=== PATIENT | female | born 1970 | race American Indian/Alaskan Native ===

== ENCOUNTER 2017-04-01 17:35 | Emergency (ER) | payer OTHER ==
[2017-04-01] MEDS ORDERED: ATIVAN ONE ×2 (18:07→18:28)
[2017-04-01] MEDS ORDERED: CATAPRES ONE (18:07)
[2017-04-01] MEDS ORDERED: CATAPRES PO ONE (18:12)
[2017-04-01] MEDS ORDERED: ATIVAN IV ONE (18:12)
[2017-04-01] MEDS ORDERED: ATIVAN PO ONE (18:32)
[2017-04-01 18:45] LABS: Basophils % (Auto) 0.3 % (0.0-1.8); Hematocrit 40.1 % (30.3-42.9); Hemoglobin 13.3 gm/dl (10.1-14.3); Mean Corpuscular HGB Conc 33 % (30-34); Mean Corpuscular Hemoglobin 32 pg (28-32); Mean Corpuscular Volume 97 fl (79-97); Platelet Count 319 K/mm3 (140-440); Red Blood Count 4.14 M/mm3 (3.65-5.03); Red Cell Distribution Width 14.1 % (13.2-15.2)
[2017-04-01 19:58] LABS: Alanine Aminotransferase 19 units/L (7-56); Albumin 4.3 g/dL (3.9-5); Albumin/Globulin Ratio 1.2 %; Alkaline Phosphatase 74 units/L (35-129); Anion Gap 20 mmol/L; Blood Urea Nitrogen 12 mg/dL (7-17); Calcium 9.5 mg/dL (8.4-10.2); Carbon Dioxide 22 mmol/L (22-30); Glucose 175 mg/dL (65-100); Potassium 3.6 mmol/L (3.6-5.0); Sodium 137 mmol/L (137-145)
--- NOTE | 2017-04-01 22:15 | Emergency Department Report ---
ED General Adult HPI - General Chief complaint: High BP Stated complaint: HTN Time Seen by Provider: 04/01/17 22:00 Source: patient, EMS (ems notes not available at time of chart dictation), RN notes reviewed, old records reviewed Mode of arrival: Ambulatory Limitations: No Limitations - History of Present Illness Initial comments: This is a 46-year-old female. She is previously unknown to me. Primary care Dr.: Past medical history: Hypertension, lupus, possible H. pylori. Medications for hypertension include clonidine, 0.1 mg every 6 hours, losartan 100 mg every morning, metoprolol 25 mg daily. Norvasc 10 mg orally. The patient is sent to the ER from a local psychiatric facility for "increased blood pressure and psychosis (new onset) rule out delirium tremens." As per enclosed medical documentation, the patient recently had an overnight stay at a local hospital for possible baclofen ingestion, and was deemed to be medically stable for psychiatric placement. As per includes psychiatric documentation, the patient was sent to the ER for increased blood pressure and new onset psychosis. She is sent to exclude delirium tremens. To me, the patient denies headache, neck pain, chest pain, abdominal pain, back pain, homicidality, suicidality, hallucinations, shortness of breath. Her primary complaint is left plantar foot pain. The patient reports compliance with her medications. -: unknown Radiation: other (per hpi) Quality: other (as per hpi) Consistency: other (as per hpi) Associated Symptoms: denies: confusion, chest pain, cough, diaphoresis, headaches, loss of appetite, malaise, nausea/vomiting, shortness of breath, syncope, weakness - Related Data Home Medications Medication Instructions Recorded Confirmed Last Taken Albuterol Sulfate [Ventolin HFA] 2 puff IH Q4H PRN 07/03/13 07/03/13 Unknown Atenolol [Tenormin] 50 mg PO DAILY 07/03/13 07/03/13 Unknown Carisoprodol [Soma] 350 mg PO 07/03/13 07/03/13 Unknown Lisinopril [Zestril] 40 PO QDAY 07/03/13 07/03/13 Unknown Losartan [Cozaar] 100 mg PO QDAY 07/03/13 07/03/13 Unknown Promethazine Dm [Phenergan DM 5 PO BID 07/03/13 07/03/13 Unknown 6.25-15 mg/5 ml] amLODIPine [Norvasc] 10 mg PO DAILY 07/03/13 07/03/13 Unknown cloNIDine [Catapres] 0.1 mg TRANSDERMA QWEEK 07/03/13 07/03/13 Unknown traMADol [Ultram 50 MG tab] 50 PO PRN 07/03/13 07/03/13 Unknown Allergies Allergy/AdvReac Type Severity Reaction Status Date / Time hydrochlorothiazide Allergy Unknown Verified 04/01/17 18:03 ED Review of Systems ROS: Stated complaint: HTN Other details as noted in HPI Constitutional: denies: fever Eyes: denies: vision change ENT: denies: epistaxis Respiratory: denies: cough Cardiovascular: denies: chest pain Gastrointestinal: denies: abdominal pain Genitourinary: as per HPI Musculoskeletal: as per HPI Skin: as per HPI Neurological: as per HPI Psychiatric: as per HPI ED Past Medical Hx - Past Medical History Previous Medical History?: Yes Hx Hypertension: Yes Hx Congestive Heart Failure: Yes Hx Asthma: Yes Additional medical history: lupus. colitis. interstitial cystitis. TEENA - Surgical History Past Surgical History?: Yes Hx Cholecystectomy: Yes - Social History Smoking Status: Never Smoker Substance Use Type: Prescribed - Medications Home Medications: Home Medications Medication Instructions Recorded Confirmed Last Taken Type Albuterol Sulfate [Ventolin HFA] 2 puff IH Q4H PRN 07/03/13 07/03/13 Unknown History Atenolol [Tenormin] 50 mg PO DAILY 07/03/13 07/03/13 Unknown History Carisoprodol [Soma] 350 mg PO 07/03/13 07/03/13 Unknown History Lisinopril [Zestril] 40 PO QDAY 07/03/13 07/03/13 Unknown History Losartan [Cozaar] 100 mg PO QDAY 07/03/13 07/03/13 Unknown History Promethazine Dm [Phenergan DM 5 PO BID 07/03/13 07/03/13 Unknown History 6.25-15 mg/5 ml] amLODIPine [Norvasc] 10 mg PO DAILY 07/03/13 07/03/13 Unknown History cloNIDine [Catapres] 0.1 mg TRANSDERMA QWEEK 07/03/13 07/03/13 Unknown History traMADol [Ultram 50 MG tab] 50 PO PRN 07/03/13 07/03/13 Unknown History ED Physical Exam - General Limitations: No Limitations General appearance: alert, in no apparent distress - Head Head exam: Present: atraumatic, normocephalic - Eye Eye exam: Present: normal appearance, EOMI, other (visual acuity intact to finger counting, color perception, reading at a close distance). Absent: nystagmus - ENT ENT exam: Present: normal exam, normal orophraynx, mucous membranes moist, normal external ear exam - Neck Neck exam: Present: normal inspection, full ROM. Absent: tenderness, meningismus - Respiratory Respiratory exam: Present: normal lung sounds bilaterally. Absent: respiratory distress, wheezes, rales, rhonchi, stridor, chest wall tenderness, accessory muscle use, decreased breath sounds, prolonged expiratory - Cardiovascular Cardiovascular Exam: Present: regular rate, normal rhythm, normal heart sounds. Absent: bradycardia, tachycardia, irregular rhythm, systolic murmur, diastolic murmur, rubs, gallop - GI/Abdominal GI/Abdominal exam: Present: soft, normal bowel sounds. Absent: distended, tenderness, guarding, rebound, rigid, pulsatile mass - Extremities Exam Extremities exam: Present: normal inspection, full ROM, normal capillary refill , other (the compartments are soft. 2+ pulses are noted in 4 extremities. There is minimal left plantar tenderness, with no redness, pus or streaking.). Absent: tenderness, pedal edema, joint swelling, calf tenderness - Back Exam Back exam: Present: normal inspection, full ROM. Absent: tenderness, CVA tenderness (R), CVA tenderness (L), muscle spasm, paraspinal tenderness, vertebral tenderness - Neurological Exam Neurological exam: Present: alert, oriented X3, normal gait, other (Extraocular movements intact. Tongue midline. No facial droop. Facial sensation intact to light touch in the V1, V2, V3 distribution bilaterally. 5 and 5 strength in 4 extremities.. Sensation is intact to light touch in 4 extremities.). Absent : motor sensory deficit - Psychiatric Psychiatric exam: Present: normal affect, normal mood. Absent: homicidal ideation, suicidal ideation - Skin Skin exam: Present: warm, dry, intact, normal color. Absent: rash ED Course Vital Signs 04/01/17 04/01/17 04/01/17 17:56 18:25 20:01 Temperature 98.6 F Pulse Rate 86 86 105 H Respiratory 20 Rate Blood Pressure 190/119 190/119 Blood Pressure [Right] O2 Sat by Pulse 100 Oximetry 04/01/17 04/01/17 04/01/17 23:03 23:06 23:10 Temperature Pulse Rate 92 H 97 H Respiratory 32 H 30 H Rate Blood Pressure 214/107 214/107 Blood Pressure [Right] O2 Sat by Pulse 100 98 99 Oximetry 04/01/17 04/01/17 04/01/17 23:15 23:20 23:26 Temperature Pulse Rate 100 H 95 H 101 H Respiratory 27 H 35 H 36 H Rate Blood Pressure 223/115 223/115 223/115 Blood Pressure [Right] O2 Sat by Pulse 99 98 100 Oximetry 04/01/17 04/01/17 04/01/17 23:30 23:36 23:40 Temperature Pulse Rate 99 H 98 H 98 H Respiratory 32 H 35 H 34 H Rate Blood Pressure 215/115 215/115 215/115 Blood Pressure [Right] O2 Sat by Pulse 100 100 100 Oximetry 04/01/17 04/01/17 04/01/17 23:45 23:50 23:56 Temperature Pulse Rate 100 H 95 H 102 H Respiratory 34 H 30 H 22 Rate Blood Pressure 232/125 232/125 232/125 Blood Pressure [Right] O2 Sat by Pulse 99 100 97 Oximetry 04/02/17 04/02/17 04/02/17 00:00 00:06 00:10 Temperature Pulse Rate 100 H 96 H 95 H Respiratory 26 H 26 H 34 H Rate Blood Pressure 221/120 221/120 221/120 Blood Pressure [Right] O2 Sat by Pulse 99 Oximetry 04/02/17 04/02/17 04/02/17 00:15 00:24 00:26 Temperature Pulse Rate 104 H Respiratory 20 Rate Blood Pressure 230/137 230/137 221/120 Blood Pressure [Right] O2 Sat by Pulse 88 82 L Oximetry 04/02/17 04/02/17 04/02/17 00:31 00:41 00:45 Temperature Pulse Rate Respiratory Rate Blood Pressure 210/96 203/118 223/110 Blood Pressure [Right] O2 Sat by Pulse 97 100 Oximetry 04/02/17 04/02/17 04/02/17 00:50 01:00 01:08 Temperature Pulse Rate Respiratory Rate Blood Pressure 223/110 213/113 213/113 Blood Pressure [Right] O2 Sat by Pulse 95 Oximetry 04/02/17 04/02/17 04/02/17 01:15 01:20 01:25 Temperature Pulse Rate Respiratory Rate Blood Pressure 221/116 221/116 221/116 Blood Pressure [Right] O2 Sat by Pulse 91 95 92 Oximetry 04/02/17 04/02/17 04/02/17 01:30 01:36 01:51 Temperature Pulse Rate Respiratory Rate Blood Pressure 218/136 218/136 218/136 Blood Pressure [Right] O2 Sat by Pulse 88 86 Oximetry 04/02/17 04/02/17 04/02/17 01:55 02:00 02:06 Temperature Pulse Rate Respiratory Rate Blood Pressure 218/136 191/101 191/101 Blood Pressure [Right] O2 Sat by Pulse 78 L 100 100 Oximetry 04/02/17 04/02/17 04/02/17 02:10 02:16 02:20 Temperature Pulse Rate Respiratory Rate Blood Pressure 191/101 191/99 221/116 Blood Pressure [Right] O2 Sat by Pulse 100 97 99 Oximetry 04/02/17 04/02/17 04/02/17 02:26 02:30 02:36 Temperature Pulse Rate Respiratory Rate Blood Pressure 221/116 218/136 137/61 Blood Pressure [Right] O2 Sat by Pulse 94 100 100 Oximetry 04/02/17 04/02/17 04/02/17 02:40 02:45 02:52 Temperature Pulse Rate Respiratory Rate Blood Pressure 137/61 127/60 127/60 Blood Pressure [Right] O2 Sat by Pulse 99 90 78 L Oximetry 04/02/17 04/02/17 04/02/17 03:00 03:15 03:30 Temperature Pulse Rate Respiratory Rate Blood Pressure 188/102 200/93 195/94 Blood Pressure 131/75 [Right] O2 Sat by Pulse Oximetry 04/02/17 04/02/17 04/02/17 03:46 04:00 04:18 Temperature Pulse Rate Respiratory Rate Blood Pressure 195/94 198/90 198/90 Blood Pressure [Right] O2 Sat by Pulse 84 Oximetry 04/02/17 04/02/17 04:20 04:45 Temperature Pulse Rate Respiratory Rate Blood Pressure 198/90 197/98 Blood Pressure [Right] O2 Sat by Pulse Oximetry - Reevaluation(s) Reevaluation #1: 04/01/17 22:15 Differential diagnosis: poorly controlled hypertension, medical clearance for psychiatric placement Assessment and plan: 46-year-old female who was sent to the ER for reported onset of new psychosis, and elevated blood pressure. To me, the patient's presentation, history and physical were not consistent with delirium tremens. She is not hallucinating at this time, she is alert, oriented, pleasant, without tachycardia, vomiting or diaphoresis. She has a GCS of 15, with an NIH score of 0, and is clinically sober at this time. Therefore, her history and physical examination did not support delirium tremens or acute psychosis. Laboratory studies were unremarkable. Her physical exam is unremarkable with the exception of elevated blood pressure. The patient did complain of back pain to the triage nurse but she denies it to me. The patient has equal pulses in 4 extremity's, and has no pulsatile abdominal mass. Apparently the patient may be detoxing off of narcotic therapy. While I seriously doubt any serious intracranial or intra-abdominal pathology, given her reported history of psychosis and hypertension, we will obtain a noncontrast CT scan of the brain to exclude occult intracranial hemorrhage. I highly doubt AAA, but we will obtain a noncontrast CT scan of abdomen and pelvis to exclude occult AAA. Reevaluation #2: 04/02/17 01:34 CT scans negative. Blood pressure now markedly elevated, 220, 230 systolic. Patient is asymptomatic. Hydralazine is ordered. Reevaluation #3: 04/02/17 02:44 blood pressure improved, currently in the 130s. Patient has had some bizarre episodes of behavior here, including some paranoid ideation. Patient will be discharged back to her psychiatric facility, I would defer to the medical doctor there to adjust her antihypertensive medications. ED Medical Decision Making - Lab Data Result diagrams: 04/01/17 18:31 04/01/17 18:31 Vital Signs 04/01/17 04/01/17 17:56 18:25 Temperature 98.6 F Pulse Rate 86 86 Respiratory 20 Rate Blood Pressure 190/119 190/119 O2 Sat by Pulse 100 Oximetry Lab Results 04/01/17 04/01/17 04/01/17 Range/Units 18:31 18:31 18:31 WBC 12.0 H (4.5-11.0) K/mm3 RBC 4.14 (3.65-5.03) M/mm3 Hgb 13.3 (10.1-14.3) gm/dl Hct 40.1 (30.3-42.9) % MCV 97 (79-97) fl MCH 32 (28-32) pg MCHC 33 (30-34) % RDW 14.1 (13.2-15.2) % Plt Count 319 (140-440) K/mm3 Lymph % (Auto) 12.4 L (13.4-35.0) % Brooks % (Auto) 4.3 (0.0-7.3) % Eos % (Auto) 0.0 (0.0-4.3) % Baso % (Auto) 0.3 (0.0-1.8) % Lymph # 1.5 (1.2-5.4) K/mm3 Brooks # 0.5 (0.0-0.8) K/mm3 Eos # 0.0 (0.0-0.4) K/mm3 Baso # 0.0 (0.0-0.1) K/mm3 Seg Neutrophils % 83.0 H (40.0-70.0) % Seg Neutrophils # 9.9 H (1.8-7.7) K/mm3 Sodium 137 (137-145) mmol/L Potassium 3.6 (3.6-5.0) mmol/L Chloride 99.0 (98-107) mmol/L Carbon Dioxide 22 (22-30) mmol/L Anion Gap 20 mmol/L BUN 12 (7-17) mg/dL Creatinine 0.8 (0.7-1.2) mg/dL Estimated GFR > 60 ml/min BUN/Creatinine Ratio 15.00 % Glucose 175 H (65-100) mg/dL Calcium 9.5 (8.4-10.2) mg/dL Total Bilirubin 0.30 (0.1-1.2) mg/dL AST 16 (5-40) units/L ALT 19 (7-56) units/L Alkaline Phosphatase 74 (35-129) units/L Total Protein 8.0 (6.3-8.2) g/dL Albumin 4.3 (3.9-5) g/dL Albumin/Globulin Ratio 1.2 % Lipase 93 H (13-60) units/L Urine HCG, Qual (Negative) 04/01/17 Range/Units 19:50 WBC (4.5-11.0) K/mm3 RBC (3.65-5.03) M/mm3 Hgb (10.1-14.3) gm/dl Hct (30.3-42.9) % MCV (79-97) fl MCH (28-32) pg MCHC (30-34) % RDW (13.2-15.2) % Plt Count (140-440) K/mm3 Lymph % (Auto) (13.4-35.0) % Brooks % (Auto) (0.0-7.3) % Eos % (Auto) (0.0-4.3) % Baso % (Auto) (0.0-1.8) % Lymph # (1.2-5.4) K/mm3 Brooks # (0.0-0.8) K/mm3 Eos # (0.0-0.4) K/mm3 Baso # (0.0-0.1) K/mm3 Seg Neutrophils % (40.0-70.0) % Seg Neutrophils # (1.8-7.7) K/mm3 Sodium (137-145) mmol/L Potassium (3.6-5.0) mmol/L Chloride (98-107) mmol/L Carbon Dioxide (22-30) mmol/L Anion Gap mmol/L BUN (7-17) mg/dL Creatinine (0.7-1.2) mg/dL Estimated GFR ml/min BUN/Creatinine Ratio % Glucose (65-100) mg/dL Calcium (8.4-10.2) mg/dL Total Bilirubin (0.1-1.2) mg/dL AST (5-40) units/L ALT (7-56) units/L Alkaline Phosphatase (35-129) units/L Total Protein (6.3-8.2) g/dL Albumin (3.9-5) g/dL Albumin/Globulin Ratio % Lipase (13-60) units/L Urine HCG, Qual Negative (Negative) Critical care attestation.: If time is entered above; I have spent that time in minutes in the direct care of this critically ill patient, excluding procedure time. ED Disposition Clinical Impression: Elevated blood pressure reading Disposition: [id number]/TX-65 PSY HOSP/PSY UNIT Is pt being admited?: No Does the pt Need Aspirin: No Condition: Good Instructions: Hypertension (ED) Additional Instructions: Continue current outpatient medications. Have the medical physician/internal medicine doctor adjust the patient's medications as necessary/directed. Return to the ER right away with headache, neck pain, chest pain, abdominal pain, shortness of breath, weakness, numbness. Referrals: PRIMARY CARE, [Primary Care Provider] - 3-5 Days
--- NOTE | 2017-04-01 22:51 | Cat Scan Report ---
FINAL REPORT EXAM: CT HEAD/BRAIN WO CON HISTORY: htn hx of psychosis r out ICH TECHNIQUE: Standard unenhanced CT of the head at 5.0 millimeter axial increments PRIORS: None. FINDINGS: The ventricular system is normal in size and configuration. There is no evidence for parenchymal volume loss. There is no evidence for mass lesion, mass effect, midline shift, acute intracranial hemorrhage, or acute ischemia/ infarction. Visualized paranasal sinuses demonstrate evidence for prior sinus surgery. Minimal mucosal thickening in the ethmoid sinuses bilaterally is noted.. IMPRESSION: Negative CT of the head. No acute intracranial process noted.
--- NOTE | 2017-04-01 23:04 | Cat Scan Report ---
FINAL REPORT EXAM: CT ABDOMEN PELVIS WO CON HISTORY: back pain HTN r out AAA TECHNIQUE: Standard unenhanced CT of the abdomen and pelvis. Coronal and sagittal reconstruction was also performed. PRIORS: None. FINDINGS: The aorta is normal in caliber throughout without evidence for abdominal aortic aneurysm. Within the abdomen, the liver has a normal variant in configuration with the left lobe extending to the left mid-axillary line. The spleen, pancreas, adrenal glands, and kidneys are unremarkable. Gallbladder has been surgically removed. No evidence for retroperitoneal or pelvic lymphadenopathy is seen. The bowel loops have normal caliber. No soft tissue mass, fluid collection, inflammatory change, or free air is seen within the abdomen or pelvis. The appendix is normal and dips deep into the pelvis. There is a small umbilical hernia containing only fat. Within the pelvis, the bladder is unremarkable. The uterus has been surgically removed. No evidence for mass or lymphadenopathy is seen in the pelvis. Images through the upper abdomen include the lung bases which are expanded and clear. Bony structures show no focal abnormalities and are intact. Bilateral facet joint degenerative changes are noted. IMPRESSION: 1. no acute intra-abdominal process noted. No evidence for abdominal aortic aneurysm. 2. Small umbilical hernia containing only fat.
[2017-04-02] MEDS ORDERED: APRESOLINE IV ONE (01:02)
[2017-04-02 06:32] VITALS: BP 131/75
== END 2017-04-02 05:30 ==
LOC: ED 17:35
DX: I10 Essential (primary) hypertension (principal); K42.9 Umbilical hernia without obstruction or gangrene; I50.9 Heart failure, unspecified; Z88.8 Allergy status to other drugs, medicaments and biological substances; N30.10 Interstitial cystitis (chronic) without hematuria; Z90.49 Acquired absence of other specified parts of digestive tract
CPT/HCPCS: 36415; 70450; 74176; 80053; 81025; 82550; 83690; 85025; 96374; 99284; G0480; J0360; 80320; J2060